=== PATIENT | female | born 1980 | race American Indian/Alaskan Native ===

== ENCOUNTER 2022-05-04 00:28 | Emergency (ER) | payer SELFPAY ==
[2022-05-04 00:36] VITALS: BP 127/44
--- NOTE | 2022-05-04 11:34 | Electrocardiograph Report ---
[facility] [place] Test Date: 2022-05-04 Test Time: 00:41:22 Pat Name: LOKESH CONKLIN Department: Room: Gender: F [facility] Spiritual Care Coordinator: DENYS : 1980 Requested By: EUN SILVA Order Number: [id number] Reading MD: Eun Silva Measurements Intervals [place] Rate: 68 P: 57 WI: 160 QRS: 63 QRSD: 81 T: 41 QT: 384 QTc: 408 Interpretive Statements Sinus rhythm No previous ECG available for comparison no ischemic changes Electronically Signed On 05-04-2022 8:34:42 PDT by Eun Silva
== END 2022-05-04 01:05 | disposition left against medical advice (07) ==
LOC: ED 00:28
DX: S09.90XA Unspecified injury of head, initial encounter (principal); Z53.21 Procedure and treatment not carried out due to patient leaving prior to being seen by health care provider; X58.XXXA Exposure to other specified factors, initial encounter; Y93.89 Activity, other specified; Y92.89 Other specified places as the place of occurrence of the external cause; Y99.8 Other external cause status
CPT/HCPCS: 93005